=== PATIENT | female | born 1960 | race African-American/Black ===

== ENCOUNTER 2020-07-06 12:03 | Emergency (ER) | payer OTHER ==
[2020-07-06 12:28] VITALS: TEMP 99.8; BMI 17.2
[2020-07-06 13:33] LABS: BASO % 0.7 % (0-2.0); EOS % 0.5 % (0-4.5); HEMATOCRIT 41.6 % (32.4-45.2); HEMOGLOBIN 14.2 GM/dL (10.7-15.3); LYMPH % 31.9 % (8-40); MCH 30.6 pg (25.7-33.7); MEAN CELL VOLUME 89.9 fl (80-96); MEAN PLT VOLUME 9.7 fl (7.5-11.1); MONO % 7.6 % (3.8-10.2); NEUT % 59.3 % (42.8-82.8); PLATELET COUNT 206 K/MM3 (134-434); RBC 4.63 M/mm3 (3.60-5.2); RDW 14.5 % (11.6-15.6)
[2020-07-06 13:48] LABS: CHLORIDE 101 mmol/L (98-107); POTASSIUM 3.3 mmol/L (3.5-5.1); SODIUM 141 mmol/L (136-145)
[2020-07-06 13:49] LABS: CALCIUM 9.7 mg/dL (8.5-10.1)
[2020-07-06 13:51] LABS: ANION GAP 9 MMOL/L (8-16); CO2 31 mmol/L (21-32); GLUCOSE,RANDOM 111 mg/dL (74-106)
[2020-07-06 13:54] LABS: CREATININE 0.8 mg/dL (0.55-1.3); SGOT/AST 12 U/L (15-37); SGPT/ALT 24 U/L (13-61)
[2020-07-06 13:56] LABS: BILIRUBIN,TOTAL 0.6 mg/dL (0.2-1); TOT PROT 7.9 g/dl (6.4-8.2)
[2020-07-06 13:57] LABS: ALK PHOS 74 U/L (45-117)
[2020-07-06 14:39] VITALS: BP 148/93; PULSE 88
== END 2020-07-06 14:39 | disposition home or self-care (01) ==
LOC: JER 12:03
DX: R03.0 Elevated blood-pressure reading, without diagnosis of hypertension (principal); R00.2 Palpitations
CPT/HCPCS: 36415; 71045-TC-FY; 80053; 82550; 84443; 84484; 85025; 93005; 93010; 99284-25